=== PATIENT | male | born 1950 ===

== ENCOUNTER 2025-01-10 08:40 | Day surgery (SDC) | payer MEDICARE ==
--- NOTE | 2025-01-10 08:30 | HP ---
HISTORY OF PRESENT ILLNESS: Needs polyp screening colonoscopy. Prior history of polyps in the past. No blood stools. No change in bowel habits. Family history of grandmother with colon cancer. PAST MEDICAL HISTORY: Depression, hyperlipidemia, BPH, type 2 diabetes, hypothyroidism. MEDICATIONS: Venlafaxine, tamsulosin, Sitagliptin, multivitamin, levothyroxine, glipizide, fish oil, ezetimibe, vitamin D3, atorvastatin, aspirin, alprazolam ALLERGIES: No known drug allergies. PAST SURGICAL HISTORY: He had colonoscopy in the past. Denied other surgery. SOCIAL HISTORY: Former smoker. No alcohol abuse. FAMILY HISTORY: Lung cancer in mother and father. Otherwise, history of grandmother with colon cancer. REVIEW OF SYSTEMS: Twelve systems reviewed. No chest pain or palpitations. Other systems negative or noncontributory as above and per preadmission questionnaire. PHYSICAL EXAMINATION: GENERAL: Height 5 feet 10 inches, BMI 32.14. No acute distress. HEENT: Sclerae anicteric. Extraocular movements are intact. NECK: No JVD. CARDIOVASCULAR: Regular rate and rhythm. RESPIRATORY: Clear. ABDOMEN: Soft. SKIN: Dry. EXTREMITIES: No cyanosis or edema. NEUROLOGIC: Alert and oriented, moving all extremities symmetrically. PSYCHIATRIC: Appropriate mood and affect. RECTAL: Deferred until time of endoscopy exam. ASSESSMENT: Need for followup screening colonoscopy. Prior history of polyps. Risks explained in detail including but not limited to bleeding, infection; risk of bowel injury or perforation possibly requiring open procedure; risk of incomplete exam possibly requiring barium enema; risk of missed or nondiagnosis; possible need for other procedure or referrals; risk of sedation or anesthesia; risk of bowel prep, but not limited to. We will proceed with outpatient followup screening colonoscopy under MAC anesthesia. Otherwise, continue medications for BPH, depression, hyperlipidemia, diabetes, and thyroid disease.
[2025-01-10] MEDS ORDERED: propofoL IV ONE ×2 (10:42→10:56)
[2025-01-10] MEDS ORDERED: PHENYLEPHRINE HCL ONE (10:58)
[2025-01-10 11:40] VITALS: RESP 16
[2025-01-10 11:51] VITALS: BP 146/91; PULSE 88; TEMP 97.4; O2SAT 95
--- NOTE | 2025-01-11 12:15 | OP ---
SURGERY DATE/TIME: 01/10/2025 [id number] PREOPERATIVE DIAGNOSES: 1) Need for screening colonoscopy. 2) History of polyps in the past. 3) Need for followup screening colonoscopy. POSTOPERATIVE DIAGNOSES: 1) Multiple colon polyps cecum, transverse colon, sigmoid colon, and rectum. 2) Pancolonic diverticulosis. 3) Fair bowel prep, limited. PROCEDURES: 1) Colonoscopy to cecum, hot biopsy polypectomy of cecal polyp. 2) Hot snare polypectomy of 3 transverse colon polyps. 3) Hot biopsy polypectomy transverse colon polyps x2 or 3 removed with hot biopsy forceps. 4) Hot snare polypectomy of sigmoid colon polyp. 5) Hot biopsy polypectomy of sigmoid colon polyp x2. 6) Hot biopsy polypectomy of rectal polyps x3. SURGEON: Benny Kiser MD ANESTHESIA: MAC. QUANTITATIVE BLOOD LOSS: Minimal. INDICATIONS: Consent was obtained. DESCRIPTION OF PROCEDURE AND FINDINGS: The patient was taken to the endoscopy room. MAC anesthesia induced. After official time-out and no disagreement with planned procedure, digital rectal exam did not reveal any rectal masses. He had some small internal hemorrhoids. Videocolonoscope was inserted and passed up through a tortuous sigmoid, descending, transverse, ascending colon. With 2 different staff members compressing on his abdomen and positioned on his back, the scope was able to reach the cecum. Appendiceal orifice and valve well visualized and photo documented. There was a polyp in the cecum that was removed with hot biopsy polypectomy, a 2 mm polyp. Scope pulled back to transverse colon. There were 3 polyps that were in the neighborhood of 4 to 7 mm removed with hot snore polypectomy. There was additional 2 or 3 transverse colon polyps removed with hot biopsy polypectomy in piecemeal polypectomy fashion. Scope pulled back into the sigmoid colon. Another 3 polyps removed with hot biopsy piecemeal polypectomy. One polyp was removed with hot snare polypectomy. These polyps were 3 to 5 mm in size. There was 3 or 4 rectal polyps removed with hot biopsy polypectomy. Hemostasis noted. They appeared to be more hypoplastic in nature. Otherwise patient had some pancolonic mild diverticulosis. Scope was withdrawn. Patient tolerated procedure well. Findings discussed with the family in waiting area.
== END 2025-01-10 12:05 | disposition home or self-care (01) ==
LOC: SDC 08:40
PROVIDERS: ATTEND Surgery
DX: Z12.11 Encounter for screening for malignant neoplasm of colon (principal); Z09 Encounter for follow-up examination after completed treatment for conditions other than malignant neoplasm; Z86.0100 Personal history of colon polyps, unspecified; Z80.0 Family history of malignant neoplasm of digestive organs; E11.9 Type 2 diabetes mellitus without complications; K62.1 Rectal polyp; K57.30 Diverticulosis of large intestine without perforation or abscess without bleeding; K64.8 Other hemorrhoids; D12.5 Benign neoplasm of sigmoid colon; D12.3 Benign neoplasm of transverse colon

== ENCOUNTER 2025-01-13 16:16 | Emergency (ER) | payer OTHER ==
[2025-01-13 16:39] VITALS: TEMP 97.4
--- NOTE | 2025-01-13 16:58 | ERPHSYRPT ---
- History of Present Illness Source: patient Exam Limitations: no limitations Patient Subjective Stated Complaint: pt states 2 weeks ago he was knelt down and experienced pain behind is right knee at up to midthigh. This pain has not subsided. He rates it a 5/10 Triage Nursing Assessment: patient walks to the er bed with a limp, refuses wheelchair. His breathing is easy and skin warm pink and dry. He states that two weeks ago he was kneeling and experienced pain behind his right knee and up the side of his right leg to mid thigh. Pulses are intact, no bruising or swelling noted. Pt states he only has pain upon movement. Physician History: Patient has right leg pain. It starts behind his knee and goes up towards his posterior thigh and anterior thigh area. It happened after he was bent over for while kneeling on his knee. He said it was in a traumatic event but it was not activity. He does not have much edema in his lower extremity. He does not have any fever or chills. Walking makes it worse palpation makes it worse rest ice and elevate makes it better. He did have some trauma but it was minor.I am not horribly suspicious for DVT but I think it should be ruled out. Allergies/Adverse Reactions: No Known Drug Allergies Allergy (Verified 01/13/25 16:41) Home Medications: Alprazolam [Xanax] 1 tab PO DAILY 12/28/24 [History] Atorvastatin Calcium 1 tab PO DAILY 12/28/24 [History] Cholecalciferol (Vitamin D3) [Vitamin D3] 1 dose PO DAILY 12/28/24 [History] Glipizide 10 mg [Glucotrol 10 MG] 1 tab PO DAILY 12/28/24 [History] Levothyroxine Sodium 1 tab PO DAILY 12/28/24 [History] Multivitamin 1 tab PO DAILY 12/28/24 [History] [place]-3/Dha/Epa/Fish Oil [Fish Oil 1,000 mg Softgel] 1 cap PO DAILY 12/28/24 [History] SITagliptin [Sitagliptin] 100 mg PO DAILY 12/28/24 [History] Tamsulosin HCl [Flomax] 0.4 mg PO DAILY 12/28/24 [History] Venlafaxine HCl 1 tab PO DAILY 12/28/24 [History] Vit A/Vit C/Vit E/Zinc/Copper [Preservision Areds Tablet] 1 tab PO DAILY 01/10/25 [History] Hx Tetanus, Diphtheria Vaccination/Date Given: Yes Hx Influenza Vaccination/Date Given: No Hx Pneumococcal Vaccination/Date Given: Yes Immunizations Up to Date: Yes Travel Risk - International Travel Have you traveled outside of the country in past 3 weeks: No - Emerging Infectious Disease Are you exhibiting symptoms associated with any current EIDs: No - Review of Systems Constitutional: No Symptoms Eyes: No Symptoms Ears, Nose, & Throat: No Symptoms Respiratory: No Symptoms Skin: No Symptoms Neurological: No Symptoms - Past Medical History Pertinent Past Medical History: Yes Neurological History: No Pertinent History ENT History: Macular Degeneration Cardiac History: High Cholesterol Endocrine Medical History: Diabetes Type II, Hypothyroidism Psycho-Social History: Depression Other Medical History: BPH. Hypothyroidism - Past Surgical History Past Surgical History: No Other Surgical History: "fatty tumors removed" - Social History Smoking Status: Former smoker Exposure to second hand smoke: No Drug Use: none - Social Determinants of Health Will the patient participate in the screening: Yes Do you worry about a steady place to live?: No Do you have any problems with any of the following?: No known problems In the past 12 months,have you had to go without utilities?: No Transportation Issues: No Has anyone in your support network made you feel unsafe?: No Have you or anyone in your house had to go w/o enough food: No - Nursing Vital Signs Nursing Vital Signs: Initial Vital Signs Temperature 97.4 F 01/13/25 16:23 Pulse Rate 82 01/13/25 16:23 Respiratory Rate 16 01/13/25 16:23 Blood Pressure 139/66 01/13/25 16:23 O2 Sat by Pulse Oximetry 92 L 01/13/25 16:23 Pain Scale Pain Intensity 2 - Physical Exam General Appearance: no apparent distress Eyes, Ears, Nose, Throat Exam: normal ENT inspection Cardiovascular/Respiratory Exam: chest non-tender, no respiratory distress Hips Exam: bilateral: non-tender, normal inspection, normal range of motion Legs Exam: bilateral leg: non-tender, normal inspection, normal range of motion Knees Exam: right knee: bone tenderness, joint effusion, pain, soft tissue tenderness, left knee: non-tender, normal inspection, normal range of motion, no evidence of injury Ankle Exam: bilateral ankle: non-tender, normal inspection, normal range of motion, no evidence of injury Foot Exam: bilateral foot: non-tender, normal inspection, normal range of motion, no evidence of injury Neuro/Tendon Exam: normal sensation, normal motor functions Mental Status Exam: alert, oriented x 3, cooperative Skin Exam: normal color, warm, dry SpO2: 92 - Course Nursing assessment & vital signs reviewed: Yes Ordered Tests: Active Orders 24 hr Category Date Time Status Crutches STAT Care 01/13/25 18:54 Active Splint STAT Care 01/13/25 18:54 Active KNEE (3 VIEWS) Stat Exams 01/13/25 16:57 Taken D-DIMER QUANTITATIVE Stat Lab 01/13/25 17:36 Completed Lab/Rad Data: Laboratory Results 01/13/25 Range/Units 17:36 D-Dimer < 0.19 (0.0-0.50) mg/L - Progress Progress: improved Progress Note: X-ray was done as interpreted by me. Look at there may be fractureOr spurComing off of a prominence of the tibia. I am unsure if this is indeed a fracture however I am going to put him in a knee immobilizer and have him follow-up with orthopedics. 01/13/25 19:37 - Departure Departure Disposition: Home Clinical Impression: Internal derangement of knee Condition: Stable Critical Care Time: No Referrals: HAROLDO FOFANA NP [Non-Physician Practitioner, UNKNOWN] - Follow up/PCP as directed Instructions: Internal Derangement of the Knee Additional Instructions: Call orthopedics for an appointment. Use knee immobilizer as needed and when walking
[2025-01-13 18:42] VITALS: PULSE 71
[2025-01-13 19:44] VITALS: O2SAT 92
[2025-01-13 19:49] VITALS: BP 133/84; RESP 16
--- NOTE | 2025-01-13 22:10 | XRAY ---
Indication: Pain following trauma 2 weeks. Comparison: None 3 view right knee demonstrates osteopenia, mild/moderate tricompartmental degenerative changes greatest medial compartment, minimal lower leg vascular calcifications, and tiny nonspecific effusion. No other bony, articular, or soft tissue abnormalities.
== END 2025-01-13 19:50 | disposition home or self-care (01) ==
LOC: ED 16:16
DX: M23.91 Unspecified internal derangement of right knee (principal); M79.604 Pain in right leg; E11.9 Type 2 diabetes mellitus without complications; Z79.891 Long term (current) use of opiate analgesic; Z79.84 Long term (current) use of oral hypoglycemic drugs; Z79.899 Other long term (current) drug therapy